=== PATIENT | female | born 1955 | race Caucasian/White ===

== ENCOUNTER 2018-02-21 05:55 | Day surgery (SDC) | payer OTHER ==
[2018-02-21] MEDS ORDERED: FENTAnyl 50 MCG/ML VIAL (08:23)
[2018-02-21] MEDS ORDERED: MIDAZOLAM 1 MG/ML 2 ML INJ (08:23)
== END 2018-02-21 11:33 | disposition home or self-care (01) ==
LOC: GIL 05:55
DX: Z12.11 Encounter for screening for malignant neoplasm of colon (principal); K64.8 Other hemorrhoids; K57.30 Diverticulosis of large intestine without perforation or abscess without bleeding; I10 Essential (primary) hypertension
CPT/HCPCS: 45378

== ENCOUNTER 2018-06-07 04:15 | Emergency (ER) | payer OTHER ==
[2018-06-07 05:58] LABS: ADD MAN DIFF? NO
[2018-06-07 06:21] LABS: BASOPHILS % 0.3 % (0.0-2.0); EOSINOPHILS % 0.3 % (0.0-7.0); HEMATOCRIT 40.6 % (37.0-47.0); HEMOGLOBIN 13.7 g/dl (12.0-16.0); LYMPHOCYTES # 3.1 10^3/ul (0.8-2.9); LYMPHOCYTES % 35.6 % (15.0-51.0); MEAN CORPUSCULAR HEMOGLOBIN 30.2 pg (29.0-33.0); MEAN CORPUSCULAR HGB CONC 33.7 g/dl (32.0-37.0); MEAN CORPUSCULAR VOLUME 89.6 fl (82.0-101.0); MEAN PLATELET VOLUME 10.9 fl (7.4-10.4); MONOCYTE # 0.6 10^3/ul (0.3-0.9); MONOCYTES % 6.5 % (0.0-11.0); NEUTROPHILS % 56.8 % (39.0-77.0); PLATELET COUNT 257 10^3/UL (140-415); RED BLOOD COUNT 4.53 10^6/ul (4.20-5.40); RED CELL DISTRIBUTION WIDTH 13.2 % (11.5-14.5)
[2018-06-07 06:21] LABS: WHITE BLOOD COUNT 8.8 10^3/ul (4.8-10.8)
[2018-06-07 06:32] LABS: ALANINE AMINOTRANSFERASE 38 IU/L (13-69); ALBUMIN 4.4 g/dl (3.3-4.9); ALBUMIN/GLOBULIN RATIO 1.29; ALKALINE PHOSPHATASE 86 IU/L (42-121); ANION GAP 12 (5-13); ASPARTATE AMINO TRANSFERASE 24 IU/L (15-46); BILIRUBIN,INDIRECT 0.2 mg/dl (0-1.1); BILIRUBIN,TOTAL 0.2 mg/dl (0.2-1.3); BLOOD UREA NITROGEN 20 mg/dl (7-20); CALCIUM 9.3 mg/dl (8.4-10.2); CARBON DIOXIDE 26 mmol/L (21-31); CHLORIDE 106 mmol/L (97-110); CREATININE 0.67 mg/dl (0.44-1.00); Estimated GFR > 60 mL/min (>60); GLUCOSE 120 mg/dl (70-220); LIPASE 180 U/L (23-300); POTASSIUM 4.2 mmol/L (3.5-5.1); SODIUM 144 mmol/L (135-144); TOTAL PROTEIN 7.8 g/dl (6.1-8.1)
[2018-06-07] MEDS: ONDANSETRON 4 MG INJ IV (07:14)
[2018-06-07] MEDS: morphine 4 MG/ML VIAL IV (07:14)
[2018-06-07 07:24] LABS: ADD UMIC YES; UR ASCORBIC ACID NEGATIVE (NEGATIVE); UR BILIRUBIN (Dip) NEGATIVE (NEGATIVE); UR BLOOD (Dip) 1+ mg/dL (NEGATIVE); UR CLARITY SLIGHTLY CLOUDY (CLEAR); UR COLOR YELLOW (YELLOW); UR GLUCOSE (Dip) NEGATIVE (NEGATIVE); UR KETONES (Dip) NEGATIVE (NEGATIVE); UR LEUKOCYTE ESTERASE (Dip) TRACE Leu/ul (NEGATIVE); UR MUCUS MANY /HPF (NONE SEEN); UR NITRITE (Dip) NEGATIVE (NEGATIVE); UR RBC 12 /HPF (0-5); UR SPECIFIC GRAVITY (Dip) 1.033 (1.003-1.030); UR TOTAL PROTEIN (Dip) NEGATIVE (NEGATIVE); UR UROBILINOGEN (Dip) NEGATIVE (NEGATIVE); UR WBC 3 /HPF (0-5)
[2018-06-07] MEDS: LIDOCAINE/MYLANTA 40 ML BTL PO (08:54)
[2018-06-07] MEDS: FAMOTIDINE 20 MG INJ IV (08:54)
[2018-06-07] MEDS: BELLADONNA/PHENOBARBITAL TAB PO (08:54)
[2018-06-07 09:23] LABS: TROPONIN-I < 0.012 ng/ml (0.000-0.120)
[2018-06-07] MEDS: HYDROmorphONE 1 MG/ML SYG IV (10:29)
[2018-06-07] MEDS: SOD CHLORIDE 0.9% 100 ML (10:46)
[2018-06-07] MEDS: IOHEXOL 100 ML (10:46)
[2018-06-07 11:23] LABS: LACTIC ACID 1.4 mmol/L (0.5-2.0)
== END 2018-06-07 12:16 | disposition home or self-care (01) ==
LOC: E/R 04:15
DX: K29.00 Acute gastritis without bleeding (principal); I10 Essential (primary) hypertension; Z85.3 Personal history of malignant neoplasm of breast; Z79.82 Long term (current) use of aspirin
CPT/HCPCS: 36415; 74176; 75635; 76705; 80053; 81001; 83605; 83690; 84484; 85025; 93005; 96374; 96375; 99285-25

== ENCOUNTER 2018-08-22 05:41 | Day surgery (SDC) | payer OTHER ==
[2018-08-22] MEDS ORDERED: MIDAZOLAM 1 MG/ML 2 ML INJ (08:33)
[2018-08-22] MEDS ORDERED: FENTAnyl 50 MCG/ML VIAL (08:33)
== END 2018-08-22 10:01 | disposition home or self-care (01) ==
LOC: GIL 05:41
DX: K29.60 Other gastritis without bleeding (principal)
CPT/HCPCS: 43239; 84703; 88305; 88312